=== PATIENT | female | born 1975 | race Hispanic/Latino ===

== ENCOUNTER 2016-10-10 18:57 | Emergency (ER) | payer MEDICAID, OTHER ==
[2016-10-10 19:07] VITALS: BMI 35.4
[2016-10-10 19:08] VITALS: BP 125/85; PULSE 81; RESP 18; TEMP 98.5; O2SAT 98
--- NOTE | 2016-10-10 19:33 | C.PDOC ---
History Of Present Illness 41 yo female w/o significant PMHx, employee of 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 Pt admits, cleaned wound thoroughly right after the accident. Otherwise, pt denies any other active complaints. Ambulate to ED for evaluation, not in any apparent distress. Time Seen by Provider: 10/10/16 19:16 Chief Complaint (Nursing): Medical Clearance History Per: Patient History/Exam Limitations: no limitations Onset/Duration Of Symptoms: Sudden Onset (BALLASTER) Past Medical History Reviewed: Historical Data, Nursing Documentation, Vital Signs Vital Signs: Last Vital Signs Temp 98.5 F 10/10/16 19:07 Pulse 81 10/10/16 19:07 Resp 18 10/10/16 19:07 BP 125/85 10/10/16 19:07 Pulse Ox 98 10/10/16 20:31 Family History: States: No Known Family Hx - Social History Hx Tobacco Use: No Hx Alcohol Use: No Hx Substance Use: No - Immunization History Hx Tetanus Toxoid Vaccination: No Hx Influenza Vaccination: No Hx Pneumococcal Vaccination: No Review Of Systems Except As Marked, All Systems Reviewed And Found Negative. Constitutional: Negative for: Fever Gastrointestinal: Negative for: Nausea, Vomiting Skin: Positive for: Other (Puncture wound to the finger) Physical Exam - Physical Exam Appears: Well, Non-toxic, No Acute Distress Skin: Normal Color, Warm, Dry, Other (Right index finger tiny pucture wound noted at base nail/cuticle. NO erythema, no edema., FAROM, no neurovascular deficits.) Eye(s): bilateral: PERRL Nose: Normal Throat: Normal Neck: Normal, Normal ROM, Trachea Midline, Supple Cardiovascular: Rhythm Regular Respiratory: Normal Breath Sounds Gastrointestinal/Abdominal: Normal Exam, Soft, No Tenderness Back: Normal Inspection, No CVA Tenderness, No Vertebral Tenderness Extremity: Normal ROM, No Tenderness, No Deformity Neurological/Psych: Oriented x3, Normal Speech, Normal Motor, Normal Sensation, Normal Reflexes ED Course And Treatment - Laboratory Results Result Diagrams: 10/10/16 19:53 10/10/16 19:53 Lab Interpretation: No Acute Changes O2 Sat by Pulse Oximetry: 98 Pulse Ox Interpretation: Normal Progress Note: On re-eavluation, pt is afebrile, hemodynamicaly stable. Non- toxic. Neurologicaly intact. Baseline blood work obtained. No HIV prophylaxis recommend at present time due to low risk case, no obvious contact with patient's blood or other patient's body fluids. Pt advised and ref. to f/ u with [employer] [facility] in 1-2 days for re-eavl and further tx as need Medical Decision Making Medical Decision Making: PLAN: * Hepatitis Pane * HIV Antibody * Rapid Plasma * CBC * HCG Urine * Urinalysis Disposition Counseled Patient/Family Regarding: Studies Performed, Diagnosis, Need For Followup - Disposition Referrals: [facility] [Outside] Disposition: HOME/ ROUTINE Disposition Time: 19:50 Condition: STABLE Additional Instructions: FOLLOW UP WITH [facility]OYEE [facility] IN 24-48 HRS FOR RE-EVALUATION, BLOOD RESULTS AND FURTHER TREATMENT NEED, ID FOLLOW UP. RETURN IF ANY WORSENING OR NEW CHANGES. 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 - Scribe Statement The provider has reviewed the documentation as recorded by the Scribe Monika Valdez All medical record entries made by the Scribe were at my direction and personally dictated by me. I have reviewed the chart and agree that the record accurately reflects my personal performance of the history, physical exam, medical decision making, and the department course for this patient. I have also personally directed, reviewed, and agree with the discharge instructions and disposition.
[2016-10-10 19:59] LABS: BASO # 0.1 K/uL (0.0-0.2); EOS # 0.1 K/uL (0.0-0.7); EOS % 1.1 % (0.0-4.0); HEMATOCRIT 35.5 % (34.0-47.0); LYMPH # 2.4 K/uL (1.0-4.3); LYMPH % 35.4 % (20.0-40.0); MEAN CELL VOLUME 85.9 fL (81.0-99.0); MEAN CORPUSCULAR HEMOGLOBIN 27.4 pg (27.0-31.0); MEAN CORPUSCULAR HGB CONC 31.9 g/dL (33.0-37.0); MEAN PLATELET VOLUME 7.5 fL (7.2-11.7); MONO # 0.3 K/uL (0.0-0.8); MONO % 5.1 % (0.0-10.0); RED CELL DISTRIBUTION WIDTH 14.2 % (11.5-14.5); WHITE BLOOD COUNT 6.7 K/uL (4.8-10.8)
[2016-10-10 20:07] LABS: CHLORIDE 98 mmol/L (98-107); POTASSIUM 3.4 mmol/L (3.6-5.2); SODIUM 137 mmol/L (132-148)
[2016-10-10 20:09] LABS: AMYLASE 96 U/L (30-110)
[2016-10-10 20:10] LABS: ALB/GLOB RATIO 1.1 (1.0-2.1); ALKALINE PHOSPHATASE 96 U/L (38-126); ALT/SGPT 20 U/L (9-52); AST/SGOT 26 U/L (14-36); BILIRUBIN,TOTAL 0.6 mg/dL (0.2-1.3); BLOOD UREA NITROGEN 16 mg/dL (7-17); CARBON DIOXIDE 26 mmol/L (22-30); GFR AFRICAN-AMERICAN > 60; GLUCOSE,RANDOM 100 mg/dL (65-105); TOTAL PROTEIN 7.7 g/dL (6.3-8.3)
[2016-10-10 20:35] LABS: RBC URINE 2 /hpf (0-3); URINE BACTERIA RARE (<OCC); URINE BILIRUBIN NEGATIVE (NEGATIVE); URINE COLOR Yellow (YELLOW); URINE GLUCOSE (UA) NORMAL (Normal); URINE KETONE NEGATIVE (NEGATIVE); URINE LEUKOCYTE ESTERASE NEG Leu/uL (Negative); URINE PROTEIN NEGATIVE (NEGATIVE); URINE UROBILINOGEN NORMAL mg/dL (0.2-1.0); WBC URINE 1 /hpf (0-5)
[2016-10-10 20:45] LABS: URINE BLOOD 1+ (NEGATIVE)
== END 2016-10-10 20:21 | disposition home or self-care (01) ==
LOC: C.ER 18:57
DX: S61.230A Puncture wound without foreign body of right index finger without damage to nail, initial encounter (principal); W45.8XXA Other foreign body or object entering through skin, initial encounter; Y93.F9 Activity, other caregiving; Y92.230 Patient room in hospital as the place of occurrence of the external cause; Y99.0 Civilian activity done for income or pay

== ENCOUNTER 2017-11-19 18:44 | Emergency (ER) | payer MEDICAID, OTHER ==
[2017-11-19 18:44] VITALS: BMI 35.4
[2017-11-19 18:54] VITALS: BP 130/86; PULSE 77; RESP 18; TEMP 98.6; O2SAT 99
--- NOTE | 2017-11-19 19:40 | C.PDOC ---
History Of Present Illness 42 y/o female presents to the ER complaining of pain to the left leg which has been present for the past 2 weeks. Patient states that she has pain in back of her knee. Patient reports that she was evaluated by her PMD and she had an X- Ray which was negative. However, the pain became worse today so she decided to come to the ER. Patient denies having weakness and numbness. Time Seen by Provider: 11/19/17 18:56 Chief Complaint (Nursing): Lower Extremity Problem/Injury History Per: Patient History/Exam Limitations: no limitations Onset/Duration Of Symptoms: Days Current Symptoms Are (Timing): Still Present Severity: Moderate Past Medical History Reviewed: Historical Data, Nursing Documentation, Vital Signs Vital Signs: Last Vital Signs Temp 98.6 F 11/19/17 18:51 Pulse 77 11/19/17 18:51 Resp 18 11/19/17 18:51 BP 130/86 11/19/17 18:51 Pulse Ox 99 11/19/17 20:24 - Medical History PMH: No Chronic Diseases Other Surgeries: Hx of surgeries Family History: States: No Known Family Hx - Social History Hx Tobacco Use: No Hx Alcohol Use: No Hx Substance Use: No - Immunization History Hx Tetanus Toxoid Vaccination: No Hx Influenza Vaccination: No Hx Pneumococcal Vaccination: No Review Of Systems Except As Marked, All Systems Reviewed And Found Negative. Musculoskeletal: Positive for: Leg Pain (left leg pain) Neurological: Negative for: Weakness, Numbness Physical Exam - Physical Exam Appears: Non-toxic, No Acute Distress Skin: Normal Color, Warm, Dry Head: Atraumatic, Normacephalic Eye(s): bilateral: Normal Inspection Nose: Normal Oral Mucosa: Moist Neck: Supple Chest: Symmetrical Cardiovascular: Rhythm Regular Respiratory: Normal Breath Sounds, No Rales, No Rhonchi, No Wheezing Extremity: Normal ROM, Tenderness (tenderness to palpation on back of left knee and calf), No Deformity, No Swelling, Other ((-) erythema to left knee) Neurological/Psych: Oriented x3, Normal Speech ED Course And Treatment O2 Sat by Pulse Oximetry: 99 (RA) Pulse Ox Interpretation: Normal Progress Note: D-Dimer is elevated. Patient has been administered 1 Lovenox injection. Patient has been discharged and instructed to come tomorrow morning for Venous Duplex Scan. Disposition - Disposition Disposition: HOME/ ROUTINE Disposition Time: 20:22 Condition: STABLE Additional Instructions: Follow up with PMD within 1-2 days. Return to ED if feel worse. RETURN TO ED TOMORROW MORNING FOR LEFT LEG DUPLEX. 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 - Scribe Statement The provider has reviewed the documentation as recorded by the Dakshaibreginaldo Bright Provider Attestation All medical record entries made by the Dakshaibreginaldo were at my direction and personally dictated by me. I have reviewed the chart and agree that the record accurately reflects my personal performance of the history, physical exam, medical decision making, and the department course for this patient. I have also personally directed, reviewed, and agree with the discharge instructions and disposition.
[2017-11-19] MEDS ORDERED: Enoxaparin 40 mg Syringe SC STA (20:16)
[2017-11-19] MEDS ORDERED: Enoxaparin 100 mg Syringe ONE (20:26)
== END 2017-11-19 20:32 | disposition home or self-care (01) ==
LOC: C.ER 18:44
DX: M79.605 Pain in left leg (principal); R79.89 Other specified abnormal findings of blood chemistry

== ENCOUNTER 2017-11-20 09:16 | Emergency (ER) | payer MEDICAID ==
[2017-11-20 09:16] VITALS: BMI 35.4
--- NOTE | 2017-11-20 10:41 | C.PDOC ---
History Of Present Illness 42 y/o female returns to the ED today for venous doppler of the left leg. Patient was seen here yesterday for left knee and lower leg pain. X-ray was done and was neg for acute bony injury. D-dimer was done and found to be mildly elevated; Patient given SC Lovenox and instructed to return today for venous doppler. Patient denies chest pain, SOB, palpitations, falls/injuries, sensory changes. Time Seen by Provider: 11/20/17 09:29 Chief Complaint (Nursing): Lower Extremity Problem/Injury History Per: Patient History/Exam Limitations: no limitations Onset/Duration Of Symptoms: Days Current Symptoms Are (Timing): Still Present Past Medical History Reviewed: Historical Data, Nursing Documentation, Vital Signs Vital Signs: Last Vital Signs Temp 98.3 F 11/20/17 10:53 Pulse 74 11/20/17 10:53 Resp 20 11/20/17 10:53 BP 115/79 11/20/17 10:53 Pulse Ox 98 11/20/17 12:00 - Medical History PMH: No Chronic Diseases Surgical History: Family History: States: No Known Family Hx - Social History Hx Tobacco Use: No Hx Alcohol Use: No Hx Substance Use: No - Immunization History Hx Tetanus Toxoid Vaccination: No Hx Influenza Vaccination: No Hx Pneumococcal Vaccination: No Review Of Systems Cardiovascular: Negative for: Chest Pain, Palpitations Respiratory: Negative for: Shortness of Breath Musculoskeletal: Positive for: Leg Pain Physical Exam - Physical Exam Appears: Well, Non-toxic, No Acute Distress Skin: Normal Color, Warm, Dry Eye(s): bilateral: Normal Inspection Oral Mucosa: Moist Cardiovascular: Rhythm Regular Respiratory: Normal Breath Sounds, No Rales, No Rhonchi, No Wheezing Extremity: Normal ROM, Tenderness (mild tenderness to lateral aspect of L knee and superior aspect of L calf), Capillary Refill (< 2 sec all digits ), No Deformity, No Swelling (or erythema/warmth) Pulses: Left Dorsalis Pedis: Normal, Right Dorsalis Pedis: Normal Neurological/Psych: Oriented x3 ED Course And Treatment O2 Sat by Pulse Oximetry: 98 (RA) Pulse Ox Interpretation: Normal - CT Scan/US venous doppler LLE CT/US Interpretation: Negative for DVT as per doppler tech Progress Note: Venous doppler ordered and reviewed - was negative for acute DVT. Patient instructed to follow up with orthopedics within 1 week. She understands she should return to ED if her symptoms worsen. Disposition Counseled Patient/Family Regarding: Studies Performed, Diagnosis, Need For Followup - Disposition Referrals: Patrick Rea III, MD [Staff Provider] - [facility] [place] [Outside] Disposition: HOME/ ROUTINE Disposition Time: 10:40 Condition: STABLE Additional Instructions: FOLLOW UP WITH ORTHOPEDICS WITHIN 1 WEEK USE MOTRIN OR TYLENOL NEEDED FOR PAIN RETURN TO ER IF SYMPTOMS WORSEN Instructions: Knee Sprain (DC) Forms: [employer] (Uruguayan) Print Language: CHINESE - POA Present On Arrival: None - Clinical Impression Clinical Impression: Left knee pain - Scribe Statement The provider has reviewed the documentation as recorded by the Scribe (Carmen Calixto) Provider Attestation: All medical record entries made by the Scribe were at my direction and personally dictated by me. I have reviewed the chart and agree that the record accurately reflects my personal performance of the history, physical exam, medical decision making, and the department course for this patient. I have also personally directed, reviewed, and agree with the discharge instructions and disposition.
[2017-11-20 10:54] VITALS: RESP 20
[2017-11-20 10:58] VITALS: BP 115/79; PULSE 74; TEMP 98.3
--- NOTE | 2017-11-20 11:30 | VASCLAB ---
PROCEDURE: Left Lower Extremity Venous Duplex Exam. HISTORY: LEFT LEG PAIN, R/O DVT PRIORS: None. TECHNIQUE: Left common femoral, femoral, popliteal and posterior tibial, peroneal and great saphenous veins were evaluated. Flow was assessed with color Doppler, compressibility, assessment of phasic flow and augmentation response. Report prepared by JULIA Mcgraw FINDINGS: LEFT: 1. Common Femoral Vein: 1.1. Compressibility - Fully compressible: Thrombus - None : Flow - Phasic: Augmentation -Normal: Reflux - None. 2. Femoral Vein: 2.1. Compressibility - Fully compressible: Thrombus - None: Flow - Phasic: Augmentation -Normal: Reflux - None. 3. Popliteal Vein: 3.1. Compressibility - Fully compressible: Thrombus - None: Flow - Phasic: Augmentation -Normal: Reflux - None. 4. Posterior Tibial Vein: 4.1. Compressibility - Fully compressible: Thrombus - None: Flow - Phasic: Augmentation -Normal: Reflux - None. 5. Peroneal Vein: 5.1. Compressibility - Fully compressible: Thrombus - None: Flow - Phasic: Augmentation -Normal: Reflux - None. 6. Great Saphenous Vein: 6.1. Compressibility - Fully compressible: Thrombus - None: Flow - Phasic: Augmentation - Normal: Reflux - None. OTHER FINDINGS: IMPRESSION: No evidence of deep or superficial vein thrombosis of the left lower extremity with excellent venous flow. Normal valve function noted of the left side. Normal venous flow noted in the right common femoral vein.
[2017-11-20 11:58] VITALS: O2SAT 98
== END 2017-11-20 10:59 | disposition home or self-care (01) ==
LOC: C.ER 09:16
DX: M25.562 Pain in left knee (principal)

== ENCOUNTER 2018-06-10 11:02 | Emergency (ER) | payer MEDICAID ==
[2018-06-10 11:02] VITALS: BMI 35.4
--- NOTE | 2018-06-10 11:34 | C.PDOC ---
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 She landed on her left knee and now complains of pain there. No head injury/LOC. No other injury. Time Seen by Provider: 06/10/18 11:11 Chief Complaint (Nursing): Lower Extremity Problem/Injury Past Medical History Reviewed: Historical Data, Nursing Documentation, Vital Signs Vital Signs: Last Vital Signs Temp 98.2 F 06/10/18 11:05 Pulse 82 06/10/18 11:05 Resp 18 06/10/18 11:05 BP 118/85 06/10/18 11:05 Pulse Ox 99 06/10/18 11:05 - Medical History PMH: No Chronic Diseases Surgical History: Family History: States: Unknown Family Hx - Social History Hx Tobacco Use: No Hx Alcohol Use: Yes Hx Substance Use: No - Immunization History Hx Tetanus Toxoid Vaccination: No Hx Influenza Vaccination: Yes Hx Pneumococcal Vaccination: No Review Of Systems Except As Marked, All Systems Reviewed And Found Negative. Constitutional: Negative for: Fever Musculoskeletal: Positive for: Leg Pain (L knee). Negative for: Neck Pain, Shoulder Pain, Arm Pain, Back Pain, Hand Pain, Foot Pain Skin: Negative for: Bruising Neurological: Negative for: Weakness, Numbness Physical Exam - Physical Exam Appears: Well, Non-toxic, No Acute Distress Skin: Normal Color, Warm, Dry, No Ecchymosis Head: Atraumatic Eye(s): bilateral: Normal Inspection Oral Mucosa: Moist Neck: Normal Extremity: Normal ROM, Tenderness (L knee), No Deformity, No Swelling Extremity: Bilateral: Hips Non-Tender, Normal Color And Temperature Neurological/Psych: Oriented x3, Normal Motor, Normal Sensation Gait: Unable To Assess (due to L knee pain) ED Course And Treatment O2 Sat by Pulse Oximetry: 99 - Other Rad X-Ray-Left Knee X-Ray: Viewed By Me, Read By Radiologist Interpretation: PROCEDURE: Left Knee Radiographs. HISTORY: injury. COMPARISON: Left knee radiographs performed 11/24/14. FINDINGS: BONES: No acute displaced fracture. JOINTS: No dislocation. JOINT EFFUSION: No significant joint effusion. OTHER FINDINGS: None. IMPRESSION: No acute displaced fracture, dislocation, or significant joint effusion identified. If s ymptoms persist, or if there is continued clinical concern, x-ray follow-up in 7-10 days should be considered. Medical Decision Making Medical Decision Making: XR done and was unremarkable, results discussed with patient. Advised rest, ice, compress, elevate at home. FERNANDA wrap provided. Disposition - Disposition Disposition: HOME/ ROUTINE Disposition Time: 12:30 Condition: STABLE Additional Instructions: KELVIN ALVAREZ, thank you for letting us take care of you today. Your provider was Candace Campos MD and you were treated for LEFT KNEE PAIN. The emergency medical care you received today was directed at your acute symptoms. If you were prescribed any medication, please fill it and take as directed. It may take several days for your symptoms to resolve. Return to the Emergency Department if your symptoms worsen, do not improve, or if you have any other problems. Please contact your doctor or call one of the physicians/clinics you have been referred to that are listed on the Patient Visit Information form that is included in your discharge packet. Bring any paperwork you were given at discharge with you along with any medications you are taking to your follow up visit. Our treatment cannot replace ongoing medical care by a primary care provider outside of the emergency department. Thank you for allowing the [facility] team to be part of your care today. If you had an X-Ray or CT scan: A Radiologist will review the ED reading if any change in treatment is needed we will contact you. If you had a blood, urine, or wound culture: It will take several days for the results, if any change in treatment is needed we will contact you. If you had an STI test: It will take 48 hours for the results. Please call after 1 week if you have not heard back. Instructions: Knee Sprain (DC) Forms: [employer] (Japanese) - Clinical Impression Clinical Impression: Left knee sprain
--- NOTE | 2018-06-10 12:17 | RAD ---
PROCEDURE: Left Knee Radiographs. HISTORY: injury COMPARISON: Left knee radiographs performed 11/24/14 FINDINGS: BONES: No acute displaced fracture. JOINTS: No dislocation. JOINT EFFUSION: No significant joint effusion. OTHER FINDINGS: None. IMPRESSION: No acute displaced fracture, dislocation, or significant joint effusion identified. If symptoms persist, or if there is continued clinical concern, x-ray follow-up in 7-10 days should be considered.
[2018-06-10 13:08] VITALS: BP 118/85; PULSE 82; RESP 18; TEMP 98.2; O2SAT 99
== END 2018-06-10 12:34 | disposition home or self-care (01) ==
LOC: C.ER 11:02
DX: S83.92XA Sprain of unspecified site of left knee, initial encounter (principal); W19.XXXA Unspecified fall, initial encounter; Y92.231 Patient bathroom in hospital as the place of occurrence of the external cause; Y99.0 Civilian activity done for income or pay

== ENCOUNTER 2018-06-14 13:58 | Emergency (ER) | payer OTHER, MEDICAID ==
[2018-06-14 13:59] VITALS: BMI 35.4
[2018-06-14 14:08] VITALS: BP 111/76; PULSE 98; RESP 18; TEMP 98; O2SAT 97
[2018-06-14] MEDS ORDERED: Oxycodone/Acetaminophen 5/325 mg Tab PO STA (14:25)
[2018-06-14] MEDS ORDERED: Naproxen 550 mg Tab PO STA (14:25)
--- NOTE | 2018-06-14 14:28 | C.PDOC ---
History Of Present Illness 43 y/o female comes in after a left hamstring injury prior to arrival. Patient states she accidentally slipped on wet floor and did a split, landing on her right knee. Patient denies any knee pain and only complains of pain behind her left thigh. Patient has no other associated injuries. Patient was seen on 06/10/18 for left knee contusion. 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 PS ACCID SLIPPED ON WET FLOOR, DID SPLIT W LEG LEG AND LANDED ON R KNEE. DENIES R KNEE PAIN, CO PAIN BEHIND L THIGH. NO OTHER ASSOC INJ. SEEN 06/10 SP L KNEE CONTUSION EXAM MILD DIST EXT LIMITED ROM LLE DUE TO PAIN. NO FOCAL END. NO SWELL; R KNEE AROM WO DIFF NONTEND SKIN INTACT Time Seen by Provider: 06/14/18 14:13 Chief Complaint (Nursing): Lower Extremity Problem/Injury History Per: Patient History/Exam Limitations: no limitations Onset/Duration Of Symptoms: Hrs Current Symptoms Are (Timing): Still Present Past Medical History Reviewed: Historical Data, Nursing Documentation, Vital Signs Vital Signs: Last Vital Signs Temp 98 F 06/14/18 14:03 Pulse 98 H 06/14/18 14:03 Resp 18 06/14/18 14:03 BP 111/76 06/14/18 14:03 Pulse Ox 97 06/14/18 14:03 Surgical History: Family History: States: No Known Family Hx - Social History Hx Tobacco Use: No Hx Alcohol Use: No Hx Substance Use: No - Immunization History Hx Tetanus Toxoid Vaccination: No Hx Influenza Vaccination: Yes Hx Pneumococcal Vaccination: No Review Of Systems Except As Marked, All Systems Reviewed And Found Negative. Constitutional: Negative for: Fever Cardiovascular: Negative for: Chest Pain Respiratory: Negative for: Shortness of Breath Gastrointestinal: Negative for: Abdominal Pain Musculoskeletal: Positive for: Other (left thigh pain, no knee pain). Negative for: Neck Pain Physical Exam - Physical Exam Appears: Non-toxic, In Acute Distress (mild distress) Skin: Warm, Dry, Other (Intact) Head: Atraumatic, Normacephalic Eye(s): bilateral: Normal Inspection Oral Mucosa: Moist Neck: Supple Chest: Symmetrical Cardiovascular: Rhythm Regular, No Murmur Respiratory: Normal Breath Sounds, No Rales, No Rhonchi, No Wheezing Gastrointestinal/Abdominal: Soft, No Tenderness Extremity: No Swelling, Other (Limited ROM of lower left extremities due to pain) Extremity: Right: Other (Right knee AROM without difficulty, no tenderness) Neurological/Psych: Oriented x3, Normal Speech, Normal Motor, Normal Sensation ED Course And Treatment O2 Sat by Pulse Oximetry: 97 (RA) Pulse Ox Interpretation: Normal Progress Note: Naproxen, percocet, toradol, and zofran administered. Disposition Counseled Patient/Family Regarding: Diagnosis, Need For Followup, Rx Given - Disposition Referrals: [facility] [Provider Group] Disposition: HOME/ ROUTINE Disposition Time: 14:28 Condition: IMPROVED Prescriptions: Ibuprofen [Motrin] 600 mg PO Q6 #30 tab Ondansetron ODT [Zofran ODT] 4 mg PO TID PRN #12 odt PRN Reason: Nausea/Vomiting oxyCODONE/Acetaminophen [Percocet 5/325 mg Tab] 1 ea PO QID #8 tab Instructions: Hamstring Muscle Strain (DC) Forms: [employer] (South Sudanese), Work Excuse - Clinical Impression Clinical Impression: Hamstring sprain - Scribe Statement The provider has reviewed the documentation as recorded by the Anthony Minaya Provider Attestation: All medical record entries made by the Dakshaibreginaldo were at my direction and pe rsonally dictated by me. I have reviewed the chart and agree that the record accurately reflects my personal performance of the history, physical exam, medical decision making, and the department course for this patient. I have also personally directed, reviewed, and agree with the discharge instructions and disposition.
[2018-06-14] MEDS ORDERED: Oxycodone/Acetaminophen 5/325 mg Tab ONE (14:33)
== END 2018-06-14 15:03 | disposition home or self-care (01) ==
LOC: C.ER 13:58
DX: S76.912A Strain of unspecified muscles, fascia and tendons at thigh level, left thigh, initial encounter (principal); W01.0XXA Fall on same level from slipping, tripping and stumbling without subsequent striking against object, initial encounter
CPT/HCPCS: 96372; 97116; 97161; 99283; G8978; G8979; G8980; J1885